=== PATIENT | female | born 1985 | race Caucasian/White ===

== ENCOUNTER 2023-08-14 14:27 | Outpatient (REF) | payer BC, SELFPAY ==
[2023-08-14 16:17] LABS: SARS-CoV-2 Ag POSITIVE (NEGATIVE)
== END 2023-08-14 14:28 | disposition home or self-care (01) ==
LOC: LAB 14:27
PROVIDERS: PCP Family Medicine; Visit Provider Family Medicine
DX: R09.81 Nasal congestion (principal); R05.1 Acute cough; R53.83 Other fatigue
CPT/HCPCS: 87811

== ENCOUNTER 2023-09-18 15:33 | Outpatient (REF) | payer BC, SELFPAY ==
[2023-09-18 17:57] LABS: Influenza Virus A Antigen Negative; Influenza Virus B Antigen Negative; Internal Control Within Normal Limits
== END 2023-09-18 15:34 | disposition home or self-care (01) ==
LOC: LAB 15:33
PROVIDERS: PCP Family Medicine; Visit Provider Family Medicine
DX: E03.9 Hypothyroidism, unspecified (principal)
CPT/HCPCS: 87804

== ENCOUNTER 2023-11-09 19:43 | Outpatient (REF) | payer BC, SELFPAY ==
--- OUTSIDE RECORDS SUMMARY | 2023-11-09 19:54 | XMS_ITS | CCD ---
Author Organization [facility] Care Team Providers Care Business Administrator Name Role Phone MINA, DR GALEANO Admitting Unavailable HOY, DR GALEANO Attending Unavailable HOY, DR GALEANO Primary Care Unavailable HOY, DR GALEANO Consulting Unavailable HOY, DR GALEANO Admitting Unavailable HOY, DR GALEANO Attending Unavailable HOY, DR GALEANO Primary Care Unavailable HOY, DR GALEANO Consulting Unavailable HOY, DR GALEANO Admitting Unavailable HOY, DR GALEANO Attending Unavailable HOY, DR GALEANO Primary Care Unavailable DARIANAY, DR GALEANO Consulting Unavailable Problems Active Problems Problem Classification Problem Date Documented Da te Episodic/Chronic Unclassified (3 sources) CONTACT W/AND (SUSP) EXPOS COVID-19; Translations: [CONTACT W/AND (SUSP) EXPOS COVID-19] Onset: 08-03-2021 Viral infection (1 source) COVID-19; Translations: [COVID-19] Onset: 09-15-2021 Past or Other Problems Problem Classification Problem Date Documented Da te Episodic/Chronic Unclassified (1 source) CONTACT W/AND (SUSP) EXPOS COVID-19; Translations: [CONTACT W/AND (SUSP) EXPOS COVID-19] Onset: 09-13-2021 Results Test Name Value Interpretation Reference Range Facility CBC AUTO DIFFon 06-28-2022 BASO # 0.0 103/ul Normal 0.0-0.1 [facility] Comment on above: Performed By: #### C BC #### [facility] [address] [address] [address] Eric Caldwell Basophils/100 WBC (Bld) 0.3 % Normal 0.2-2.0 [facility] Comment on above: Performed By: #### C BC #### [facility] [address] [address] [address] Eric Caldwell EO # 0.1 103/ul Normal 0.0-0.7 [facility] Comment on above: Performed By: #### C BC #### [facility] [address] [place] [address] Dr. Eric Caldwell Eosinophils/100 WBC (Bld) 0.9 % Normal 0.9-7.0 [facility] Comment on above: Performed By: #### C BC #### [facility] [address] [place] [address] Dr. Eric Caldwell Erythrocyte distribution width (RBC) [Ratio] 12.4 % Normal 11.0-15.0 [facility] Comment on above: Performed By: #### C BC #### [facility] [address] [place] [address] Dr. Eric Caldwell Hematocrit (Bld) [Volume fraction] 40.6 % Normal 36.0-48.0 [facility] Comment on above: Performed By: #### C BC #### [facility] [address] [place] [address] Dr. Eric Caldwell Hemoglobin (Bld) [Mass/Vol] 13.6 g/dL Normal 12.0-16.0 [facility] Comment on above: Performed By: #### C BC #### [facility] [address] [place] [address] Dr. Eric Caldwell IG # 0.01 10e3/ul Normal 0.00-0.03 [facility] Comment on above: Performed By: #### C BC #### [facility] [address] [place] [address] Dr. Eric Caldwell IG % 0.1 % Normal 0.0-0.5 [facility] Comment on above: Performed By: #### C BC #### [facility] [address] [place] [address] Dr. Eric Caldwell LYMPH # 2.0 103/ul Normal 1.2-3.8 [facility] Comment on above: Performed By: #### C BC #### [facility] [address] [place] [address] Dr. Eric Caldwell Lymphocytes/100 WBC (Bld) 26.2 % Normal 20.5-60.0 [facility] Comment on above: Performed By: #### C BC #### [facility] [address] [place] [address] Dr. Eric Caldwell MANUAL DIFF REQ NO Normal [facility] Comment on above: Performed By: #### C BC #### [facility] [address] [place] [address] Dr. Eric Caldwell MCH (RBC) [Entitic mass] 30.0 pg Normal 26.7-34.0 [facility] Comment on above: Performed By: #### C BC #### [facility] [address] [place] [address] Dr. Eric Caldwell MCHC (RBC) [Mass/Vol] 33.5 g/dL Normal 29.9-35.2 [facility] Comment on above: Performed By: #### C BC #### [facility] [address] [place] [address] Dr. Eric Caldwell MCV (RBC) [Entitic vol] 89.6 fL Normal 81.0-99.0 [facility] Comment on above: Performed By: #### C BC #### [facility] [address] [place] [address] Dr. Eric Caldwell MONO # 0.4 103/ul Normal 0.3-0.8 [facility] Comment on above: Performed By: #### C BC #### [facility] [address] [place] [address] Dr. Eric Caldwell Monocytes/100 WBC (Bld) 5.8 % Normal 1.7-12.0 [facility] Comment on above: Performed By: #### C BC #### [facility] [address] [place] [address] Dr. Eric Caldwell NEUT # 5.0 103/ul Normal 1.4-6.5 [facility] Comment on above: Performed By: #### C BC #### [facility] [address] [place] [address] Dr. Eric Caldwell Neutrophils/100 WBC (Bld) 66.7 % Normal 43.0-75.0 [facility] Comment on above: Performed By: #### C BC #### [facility] [address] [address] [address] Eric Caldwell Platelet mean volume (Bld) [Entitic vol] 10.6 fL Normal 9.5-13.5 [facility] Comment on above: Performed By: #### C BC #### [facility] [address] [address] [address] Eric Caldwell PLT 198 103/ul Normal 150-450 [facility] Comment on above: Performed By: #### C BC #### [facility] [address] [address] [address] Eric Caldwell RBC 4.53 106/ul Normal 4.20-5.40 [facility] Comment on above: Performed By: #### C BC #### [facility] [address] [place] [address] Dr. Eric Caldwell WBC 7.5 103/ul Normal 4.0-11.0 [facility] Comment on above: Performed By: #### C BC #### [facility] [address] [place] [address] Dr. Eric Caldwell FREE THYROXINE INDEX T7on FTI 1.95 Normal 1.30-4.50 [facility] Comment on above: Performed By: #### T SH, T7, LIPID, CMP #### [facility] [address] [place] [address] Dr. Eric Caldwell T3U 33.0 % Normal 30.0-39.0 [facility] Comment on above: Performed By: #### T SH, T7, LIPID, CMP #### [facility] [address] [place] [address] Dr. Eric Caldwell T4 [Mass/Vol] 5.90 ug/dL Normal 4.80-13.90 [facility] Comment on above: Performed By: #### T SH, T7, LIPID, CMP #### [facility] [address] [place] [address] Dr. Eric Caldwell GLYCOHEMOGLOBIN A1Con 2021 ADA RECOMMENDATION SEE BELOW Normal [facility] Comment on above: Result Comment: ADA RECOMMENDED LIMIT 4.0 - 6.0 ADA THERAPEUTIC TARGET < 7.0 ACTION SUGGESTED > 7.0 Performed By: #### A 1C #### [facility] [address] [address] [address] Eric Caldwell Glucose [Mass/Vol] 88 mg/dL Normal [facility] Comment on above: Performed By: #### A 1C #### [facility] [address] [address] [address] Eric Caldwell HbA1c (Bld) [Mass fraction] 4.7 % Normal 4.5-6.2 [facility] Comment on above: Performed By: #### A 1C #### [facility] [address] [place] [address] Dr. Eric Caldwell LIPID PROFILEon 06-28-2022 CHOL-HDL RATIO NORM SEE BELOW Normal [facility] Comment on above: Result Comment: 3.3 - 4.4 LOW RISK 4.4 - 7.1 AVERAGE RISK 7.1 - 11.0 MODERATE RISK >11.0 HIGH RISK Performed By: #### T SH, T7, LIPID, CMP #### [facility] [address] [place] [address] Dr. Eric Caldwell Cholesterol [Mass/Vol] 166 mg/dL Normal <=200 [facility] Comment on above: Performed By: #### T SH, T7, LIPID, CMP #### [facility] [address] [place] [address] Dr. Eric Caldwell Cholesterol in HDL [Mass/Vol] 51 mg/dL Normal 40-60 [facility] Comment on above: Performed By: #### T SH, T7, LIPID, CMP #### [facility] [address] [address] [address] Eric Caldwell Cholesterol in LDL [Mass/Vol] 99.6 mg/dL Normal [facility] Comment on above: Performed By: #### T SH, T7, LIPID, CMP #### [facility] [address] [place] [address] Dr. Eric Caldwell Cholesterol.total/Ch olesterol in HDL [Mass ratio] 3.3 {ratio} Normal [facility] Comment on above: Performed By: #### T SH, T7, LIPID, CMP #### [facility] [address] [address] [address] Eric Caldwell HDL NORMAL > or = 60 mg/dl - LOW CARDIOVASCULAR RISK <40 mg/dl - HIGH CARDIOVASCULAR RISK Normal [facility] Comment on above: Performed By: #### T SH, T7, LIPID, CMP #### [facility] [address] [address] [address] Eric Caldwell LDL CALC NORMAL SEE BELOW Normal [facility] Comment on above: Result Comment: <100 mg/dl OPTIMAL 100 - 129 mg/dl NEAR OR ABOVE OPTIMAL 130 - 159 mg/dl BORDERLINE HIGH 160 - 189 mg/dl HIGH >190 mg/dl VERY HIGH Performed By: #### T SH, T7, LIPID, CMP #### [facility] [address] [address] [address] Eric Caldwell Triglyceride [Mass/Vol] 77 mg/dL Normal <=150 [facility] Comment on above: Performed By: #### T SH, T7, LIPID, CMP #### [facility] [address] [address] [address] Eric Caldwell VLDL CALC 15.4 mg/dL Normal [facility] Comment on above: Performed By: #### T SH, T7, LIPID, CMP #### [facility] [address] [address] [address] Eric Caldwell PROF 14(COMP METB)on 022 Albumin [Mass/Vol] 3.4 g/dL Normal 3.4-5.0 [facility] Comment on above: Performed By: #### T SH, T7, LIPID, CMP #### [facility] [address] [address] [address] Eric Caldwell Albumin/Globulin [Mass ratio] 0.9 {ratio} Normal [facility] Comment on above: Performed By: #### T SH, T7, LIPID, CMP #### [facility] [address] [address] [address] Eric Caldwell ALP [Catalytic activity/Vol] 52 U/L Normal 46-116 [facility] Comment on above: Performed By: #### T SH, T7, LIPID, CMP #### [facility] [address] [address] [address] Eric Caldwell ALT [Catalytic activity/Vol] 26 U/L Normal 14-59 [facility] Comment on above: Performed By: #### T SH, T7, LIPID, CMP #### [facility] [address] [place] [address] Dr. Eric Caldwell Anion gap [Moles/Vol] 11.1 mmol/L Normal [facility] Comment on above: Performed By: #### T SH, T7, LIPID, CMP #### [facility] [address] [place] [address] Dr. Eric Caldwell AST [Catalytic activity/Vol] 15 U/L Normal 15-37 [facility] Comment on above: Performed By: #### T SH, T7, LIPID, CMP #### [facility] [address] [place] [address] Dr. Eric Caldwell Bilirubin [Mass/Vol] 0.5 mg/dL Normal 0.2-1.0 [facility] Comment on above: Performed By: #### T SH, T7, LIPID, CMP #### [facility] [address] [place] [address] Dr. Eric Caldwell Calcium [Mass/Vol] 8.7 mg/dL Normal 8.5-10.1 [facility] Comment on above: Performed By: #### T SH, T7, LIPID, CMP #### [facility] [address] [address] [address] Eric Caldwell Chloride [Moles/Vol] 105 mmol/L Normal 98-107 [facility] Comment on above: Performed By: #### T SH, T7, LIPID, CMP #### [facility] [address] [place] [address] Dr. Eric Caldwell CO2 [Moles/Vol] 23.9 mmol/L Normal 21.0-32.0 [facility] Comment on above: Performed By: #### T SH, T7, LIPID, CMP #### [facility] [address] [place] [address] Dr. Eric Caldwell Creatinine [Mass/Vol] 0.62 mg/dL Normal 0.55-1.02 [facility] Comment on above: Performed By: #### T SH, T7, LIPID, CMP #### [facility] [address] [place] [address] Dr. Eric Caldwell EGFR-AF CITIZ[place] >60 Normal >=60 [facility] Comment on above: Performed By: #### T SH, T7, LIPID, CMP #### [facility] [address] [address] [address] Eric Caldwell EGFR-NON AF CITIZEN OF [place] >60 Normal >=60 [facility] Comment on above: Performed By: #### T SH, T7, LIPID, CMP #### [facility] [address] [place] [address] Dr. Eric Caldwell Globulin (S) [Mass/Vol] 3.6 g/dL Normal [facility] Comment on above: Performed By: #### T SH, T7, LIPID, CMP #### [facility] [address] [place] [address] Dr. Eric Caldwell Glucose [Mass/Vol] 97 mg/dL Normal 74-106 [facility] Comment on above: Performed By: #### T SH, T7, LIPID, CMP #### [facility] [address] [place] [address] Dr. Eric Caldwell Potassium [Moles/Vol] 4.0 mmol/L Normal 3.5-5.1 [facility] Comment on above: Performed By: #### T SH, T7, LIPID, CMP #### [facility] [address] [place] [address] Dr. Eric Caldwell Protein [Mass/Vol] 7.0 g/dL Normal 6.4-8.2 [facility] Comment on above: Performed By: #### T SH, T7, LIPID, CMP #### [facility] [address] [place] [address] Dr. Eric Caldwell Sodium [Moles/Vol] 136 mmol/L Normal 136-145 [facility] Comment on above: Performed By: #### T SH, T7, LIPID, CMP #### [facility] [address] [address] [address] Eric Caldwell Urea nitrogen [Mass/Vol] 11.0 mg/dL Normal 7.0-18.0 [facility] Comment on above: Performed By: #### T SH, T7, LIPID, CMP #### [facility] [address] [address] [address] Eric Caldwell Urea nitrogen/Creatinine [Mass ratio] 17.7 mg/mg Normal [facility] Comment on above: Performed By: #### T SH, T7, LIPID, CMP #### [facility] [address] [address] [address] Eric Caldwell TSHon 06-28-2022 TSH 3.734 uIU/mL Normal 0.358-3.740 [facility] Comment on above: Performed By: #### T SH, T7, LIPID, CMP #### [facility] [address] [address] [address] Eric Caldwell Covid-19 PCR (CVDTBH)on SARS-CoV-2 (COVID-19) RNA SERA+probe Ql (Unsp spec) Detected Critically abnormal NOT DETECTED [facility] Comment on above: Result Comment: This test is not yet approved or cleared by the [place] FDA. When there are no FDA-approved or cleared tests available, and other criteria are met, FDA can make tests available under an emergency access mechanism called an Emergency Use Authorization (EUA). The EUA for this test is supported by the [place] of Health and Human Service's (HHS's) declaration that circumstances exist to justify the emergency use of in vitro diagnostics for the detection and/or diagnosis of the virus that causes COVID-19. This EUA will remain in effect (meaning this test can be used) for the duration of the COVID-19 declaration justifying emergency of IVDs, unless it is terminated or revoked by FDA (after which the test may no longer be used). Performed By: #### C VDTBH #### [facility] [address] [address] [address] Eric Caldwell Covid-19 PCR (CVDTBH)on 07-08 SARS-CoV-2 (COVID-19) RNA SERA+probe Ql (Unsp spec) Not detected Normal NOT DETECTED [facility] Comment on above: Result Comment: This test is not yet approved or cleared by the [place] FDA. When there are no FDA-approved or cleared tests available, and other criteria are met, FDA can make tests available under an emergency access mechanism called an Emergency Use Authorization (EUA). The EUA for this test is supported by the [place] of Health and Human Service's (HHS's) declaration that circumstances exist to justify the emergency use of in vitro diagnostics for the detection and/or diagnosis of the virus that causes COVID-19. This EUA will remain in effect (meaning this test can be used) for the duration of the COVID-19 declaration justifying emergency of IVDs, unless it is terminated or revoked by FDA (after which the test may no longer be used). When diagnostic testing is negative, the possibility of a false negative should be considered in the context of a patient's recent exposures and the presence of clinical signs and symptoms consistent with SARS-CoV-2. Performed By: #### C [facility] #### [facility] [address] [place] [address] Dr. Eric Caldwell Encounters Encounter Date Encounter Type Care Provider Facility Start: 07-02-2022 Encounter for genera l adult medical examination without abnormal findings DR WALESKA ENRIQUEZ [facility] Start: 06-28-2022 End: 06-29-[address] WALESKA ENRIQUEZ Facility:[facility] Start: 06-28-2022 End: 06-29-2022 Encounter for general adult medical examination without abnormal findings DR WALESKA ENRIQUEZ Facility:[facility] Start: 09-13-2021 End: 09-13-[address] WALESKA ENRIQUEZ Facility:[facility] Start: 07-27-2021 End: 07-27-[address] WALESKA ENRIQUEZ Facility:[facility] Payers Date Payer Category Payer Unknown [id number] [id number] [id number] 1986 Unknown [id number] [id number] 1986 Unknown [id number] [id number] [id number] 1958 Private Health Insurance [id number] 1958 Unknown [id number] Summary Purpose Family History No Family History Records Found Advance Directives No Advanced Directives Records Found Additional Source Comments INFORMATION SOURCE (unrecogn ized section and content) DATE CREATED AUTHOR 07/02/2022 [facility] FOR RECORDS PERTAINING TO PATIENTS WHO ARE OR HAVE BEEN ENROLLED IN A CHEMICAL DEPENDENCY/SUBSTANCEABUSE PROGRAM, SOME INFORMATION MAY BE OMITTED. This clinical summary was aggregated from multiple sources. Caution should be exercised in using it in the provision of clinical care. This summary normalizes information from multiple sources, and as a consequence, information in this document may materially change the coding, format and clinical context of patient data. In addition, data may be omitted in some cases. CLINICAL DECISIONS SHOULD BE BASED ON THE PRIMARY CLINICAL RECORDS. [facility] [employer] [facility]. provides no warranty or guarantee of the accuracy or completeness of information in this document.
[2023-11-16 13:08] LABS: Age Gdln ACOG Testing Note (.); HPV Aptima Negative (Negative); IGP, Aptima HPV, rfx 16/18,45 Note (.)
== END 2023-11-09 19:44 | disposition home or self-care (01) ==
LOC: LAB 19:43
PROVIDERS: PCP Family Medicine; Visit Provider Physician Assistant
DX: Z01.419 Encounter for gynecological examination (general) (routine) without abnormal findings (principal)
CPT/HCPCS: 87624; G0145

== ENCOUNTER 2024-06-20 17:03 | Emergency (ER) | payer OTHER, BC, SELFPAY ==
[2024-06-20 17:20] VITALS: BP 153/96; PULSE 96; TEMP 36.9; O2SAT 98; BMI 45.2
--- OUTSIDE RECORDS SUMMARY | 2024-06-20 17:26 | XMS_ITS | CCD ---
Author Organization [facility] Care Team Providers Care [employer] Consultant Name Role Phone MINA, DR GALEANO Admitting Unavailable HOY, DR GALEANO Attending Unavailable HOY, DR GALEANO Primary Care Unavailable HOY, DR GALEANO Consulting Unavailable HOY, DR GALEANO Admitting Unavailable HOY, DR GALEANO Attending Unavailable DARIANAY, DR GALEANO Primary Care Unavailable HOY, DR GALEANO Consulting Unavailable HOY, DR GALEANO Admitting Unavailable HOY, DR GALEANO Attending Unavailable HOY, DR GALEANO Primary Care Unavailable HOY, DR GALEANO Consulting Unavailable [facility], Noel Miranda Attending Unavailable [facility], Noel Miranda Admitting Unavailable [facility], DO Noel Miranda Attending Provider Problems Active Problems Problem Classification Problem Date [...] Test Name Value Interpretation Reference Range Facility Basic Metabolic PanelOrdered By: Noel Thakkar on 05-08-2024 Anion gap [Moles/Vol] 12.2 mmol/L Normal 6.0-15.0 [facility] Comment on above: Performed By: #### L IPID, BMP #### [address] Calcium [Mass/Vol] 9.5 mg/dL Normal 8.6-10.3 [facility] Comment on above: Performed By: #### L IPID, BMP #### [facility] [address] Chloride [Moles/Vol] 103 mmol/L Normal 98-107 [facility] Comment on above: Performed By: #### L IPID, BMP #### [facility] [address] CO2 [Moles/Vol] 26.9 mmol/L Normal 21.0-31.0 [facility] Comment on above: Performed By: #### L IPID, BMP #### [address] Creatinine [Mass/Vol] 0.79 mg/dL Normal 0.60-1.20 [facility] Comment on above: Performed By: #### L IPID, BMP #### [address] Glucose [Mass/Vol] 76 mg/dL Normal 70-100 [facility] Comment on above: Result Comment: [place] om Glucose Reference Range is dependent on time and content of last meal. Glucose of more than 200 mg/dL in a nonstressed, ambulatory subject supports the diagnosis of Diabetes Mellitus. ADA recommended reference range Performed By: #### L IPID, BMP #### [address] ADA recommended refe rence rangeRandom Glucose Reference Range is dependent on time and content of last meal. Glucose of more than 200 mg/dL in a nonstressed, ambulatory subject supports the diagnosis of Diabetes Mellitus. Potassium [Moles/Vol] 4.1 mmol/L Normal 3.5-5.1 [facility] Comment on above: Performed By: #### L IPID, BMP #### [address] Sodium [Moles/Vol] 138 mmol/L Normal 136-145 [facility] Comment on above: Performed By: #### L IPID, BMP #### [address] [place] [address] [place] Urea nitrogen [Mass/Vol] 19 mg/dL Normal 7-25 [facility] Comment on above: Performed By: #### L IPID, BMP #### [facility] [address] [place] [id number] [facility] Basic Metabolic Panelon 100 GFR/1.73 sq M.predicted MDRD (S/P/Bld) [Vol rate/Area] mL/min/{1.73_m2} Normal [facility] Comment on above: Performed By: #### L IPID, BMP #### [facility] [address] Cholesterol in LDL Calc [Mas s/Vol]Ordered By: Noel Thakkar on 05-08-2024 Cholesterol in LDL [Mass/Vol] 113 mg/dL High 0-100 [facility] Comment on above: LDL ATP III CLASSIFI CATIONLDL less than 100 mg/dL OptimalLDL 100-129 mg/dL Near or above optimalLDL 130-159 mg/dL Borderline highLDL 160-189 mg/dL HighLDL greater than 189 mg/dL Very high Cholesterol in VLDL Calc [Ma ss/Vol]Ordered By: Noel Thakkar on 05-08-2024 Cholesterol in VLDL [Mass/Vol] 47 mg/dL [facility] Lipid PanelOrdered By: Noel Thakkar on 05-08-2024 Cholesterol [Mass/Vol] 207 mg/dL High 140-200 [facility] Comment on above: Result Comment: Chol less than 200 mg/dl low risk Chol 201-239 mg/dl borderline risk Chol 240 mg/dl and greater high risk Performed By: #### L IPID, BMP #### [facility] [address] [place] [id number] [facility] Chol less than 200 m g/dl low riskChol 201-239 mg/dl borderline riskChol 240 mg/dl and greater high risk Cholesterol in HDL [Mass/Vol] 47 mg/dL Normal 23-92 [facility] Comment on above: Result Comment: HDL CHOL ATP-III CLASSIFICATION Cardiovascular Risk HDL > or equal to 60 mg/dL LOW HDL < 40 mg/dL HIGH Performed By: #### L IPID, BMP #### [facility] [address] [place] [address] HDL CHOL ATP-III CLA SSIFICATION Cardiovascular RiskHDL > or equal to 60 mg/dL LOWHDL < 40 mg/dL HIGH Cholesterol.total/Chol esterol in HDL [Mass ratio] 4.4 {ratio} Normal <5.0 [facility] Comment on above: Result Comment: PERF ORMED BY: [place] [address] PATHOLOGIST [employer]EL[employer] AP[employer] ARC ROCIO PERRY M.D. Performed By: #### L IPID, BMP #### [address] Lipid Panelon 05-08-2024 LDL Cholesterol,Calculated 113 mg/dL High 0-100 [facility] Comment on above: Result Comment: LDL ATP III CLASSIFICATION LDL less than 100 mg/dL Optimal LDL 100-129 mg/dL Near or above optimal LDL 130-159 mg/dL Borderline high LDL 160-189 mg/dL High LDL greater than 189 mg/dL Very high Performed By: #### L IPID, BMP #### [facility] [address] [place] [address] Triglyceride w/Reflex 237 mg/dL High 0-149 [facility] Comment on above: Result Comment: TRIG ATP III CLASSIFICATION TRIG less than 150 mg/dL Normal TRIG 150-199 mg/dL Borderline high TRIG 200-500 mg/dL High TRIG greater than 500 mg/dL Very high Standard traceable to the Center for Disease Conrtrol and Prevention (CDC) test method. Performed By: #### L IPID, BMP #### [facility] [address] [place] [address] VLDL CHOLESTEROL 47 mg/dL Normal [facility] Comment on above: Performed By: #### L IPID, BMP #### [address] No Panel InformationOrdered By: Noel Thakkar on 05-08-2024 Estimated GFR (CKD-EPI) > 60.0 mL/Min [facility] Creatinine Clearance (Chem N/A [facility] Triglyceride [Mass/volume] i n Serum or PlasmaOrdered By: Noel Thakkar on 05-08-2024 Triglyceride [Mass/Vol] 237 mg/dL High 0-149 [facility] Comment on above: TRIG ATP III CLASSIF ICATIONTRIG less than 150 mg/dL NormalTRIG 150-199 mg/dL Borderline highTRIG 200-500 mg/dL High TRIG greater than 500 mg/dL Very highStandard traceable to the Center for Disease Conrtrol and Prevention (CDC) test method. CBC AUTO DIFFon 06-28-2022 BASO # 0.0 103/ul Normal 0.0-0.1 [facility] Comment on above: Performed By: #### C BC #### [facility] [address] [address] [address] Eric Caldwell Basophils/100 WBC (Bld) 0.3 % Normal 0.2-2.0 [facility] Comment on above: Performed By: #### C BC #### [facility] [address] [address] [address] Eric Caldwell EO # 0.1 103/ul Normal 0.0-0.7 [facility] Comment on above: Performed By: #### C BC #### [facility] [address] [address] [address] Eric Caldwell Eosinophils/100 WBC (Bld) 0.9 % Normal 0.9-7.0 [facility] Comment on above: Performed By: #### C BC #### [facility] [address] [address] [address] Eric Caldwell Erythrocyte distribution width (RBC) [Ratio] 12.4 % Normal 11.0-15.0 [facility] Comment on above: Performed By: #### C BC #### [facility] [address] [address] [address] Eric Caldwell Hematocrit (Bld) [Volume fraction] 40.6 % Normal 36.0-48.0 [facility] Comment on above: Performed By: #### C BC #### [facility] [address] [address] [address] Eric Caldwell Hemoglobin (Bld) [Mass/Vol] 13.6 g/dL Normal 12.0-16.0 [facility] Comment on above: Performed By: #### C BC #### [facility] [address] [place] [address] Dr. Eric Caldwell IG # 0.01 10e3/ul Normal 0.00-0.03 [facility] Comment on above: Performed By: #### C BC #### [facility] [address] [place] [address] Dr. Eric Caldwell IG % 0.1 % Normal 0.0-0.5 [facility] Comment on above: Performed By: #### C BC #### [facility] [address] [place] [address] Dr. Eric Caldwell LYMPH # 2.0 103/ul Normal 1.2-3.8 [facility] Comment on above: Performed By: #### C BC #### [facility] [address] [place] [address] Dr. Eric Caldwell Lymphocytes/100 WBC (Bld) 26.2 % Normal 20.5-60.0 [facility] Comment on above: Performed By: #### C BC #### [facility] [address] [place] [address] Dr. Eric Caldwell MANUAL DIFF REQ NO Normal [facility] Comment on above: Performed By: #### C BC #### [facility] [address] [place] [address] Dr. Eric Caldwell MCH (RBC) [Entitic mass] 30.0 pg Normal 26.7-34.0 [facility] Comment on above: Performed By: #### C BC #### [facility] [address] [place] [address] Dr. Eric Caldwell MCHC (RBC) [Mass/Vol] 33.5 g/dL Normal 29.9-35.2 [facility] Comment on above: Performed By: #### C BC #### [facility] [address] [place] [address] Dr. Eric Caldwell MCV (RBC) [Entitic vol] 89.6 fL Normal 81.0-99.0 [facility] Comment on above: Performed By: #### C BC #### [facility] [address] [place] [address] Dr. Eric Caldwell MONO # 0.4 103/ul Normal 0.3-0.8 [facility] Comment on above: Performed By: #### C BC #### [facility] [address] [place] [address] Dr. Eric Caldwell Monocytes/100 WBC (Bld) 5.8 % Normal 1.7-12.0 [facility] Comment on above: Performed By: #### C BC #### [facility] [address] [place] [address] Dr. Eric Caldwell NEUT # 5.0 103/ul Normal 1.4-6.5 [facility] Comment on above: Performed By: #### C BC #### [facility] [address] [place] [address] Dr. Eric Caldwell Neutrophils/100 WBC (Bld) 66.7 % Normal 43.0-75.0 [facility] Comment on above: Performed By: #### C BC #### [facility] [address] [place] [address] Dr. Eric Caldwell Platelet mean volume (Bld) [Entitic vol] 10.6 fL Normal 9.5-13.5 [facility] Comment on above: Performed By: #### C BC #### [facility] [address] [place] [address] Dr. Eric Caldwell PLT 198 103/ul Normal 150-450 [facility] Comment on above: Performed By: #### C BC #### [facility] [address] [place] [address] Dr. Eric Caldwell RBC 4.53 106/ul Normal 4.20-5.40 [facility] Comment on above: Performed By: #### C BC #### [facility] [address] [place] [address] Dr. Eric Caldwell WBC 7.5 103/ul Normal 4.0-11.0 [facility] Comment on above: Performed By: #### C BC #### [facility] [address] [address] [address] Eric Caldwell FREE THYROXINE INDEX T7on FTI 1.95 Normal 1.30-4.50 [facility] Comment on above: Performed By: #### T SH, T7, LIPID, CMP #### [facility] [address] [place] [address] Dr. Eric Caldwell T3U 33.0 % Normal 30.0-39.0 [facility] Comment on above: Performed By: #### T SH, T7, LIPID, CMP #### [facility] [address] [place] [address] Dr. Eric Caldwell T4 [Mass/Vol] 5.90 ug/dL Normal 4.80-13.90 [facility] Comment on above: Performed By: #### T SH, T7, LIPID, CMP #### [facility] [address] [place] [address] Dr. Eric Caldwell GLYCOHEMOGLOBIN A1Con 2021 ADA RECOMMENDATION SEE BELOW Normal [facility] Comment on above: Result Comment: ADA RECOMMENDED LIMIT 4.0 - 6.0 ADA THERAPEUTIC TARGET < 7.0 ACTION SUGGESTED > 7.0 Performed By: #### A 1C #### [facility] [address] [place] [address] Dr. Eric Caldwell Glucose [Mass/Vol] 88 mg/dL Normal [facility] Comment on above: Performed By: #### A 1C #### [facility] [address] [place] [address] Dr. Eric Caldwell HbA1c (Bld) [Mass fraction] 4.7 % Normal 4.5-6.2 [facility] Comment on above: Performed By: #### A 1C #### [facility] [address] [place] [address] Dr. Eric Caldwell LIPID PROFILEon 06-28-2022 CHOL-HDL RATIO NORM SEE BELOW Normal [facility] Comment on above: Result Comment: 3.3 - 4.4 LOW RISK 4.4 - 7.1 AVERAGE RISK 7.1 - 11.0 MODERATE RISK >11.0 HIGH RISK Performed By: #### T SH, T7, LIPID, CMP #### [facility] [address] [address] [address] Eric Caldwell Cholesterol [Mass/Vol] 166 mg/dL Normal <=200 [facility] Comment on above: Performed By: #### T SH, T7, LIPID, CMP #### [facility] [address] [address] [address] Eric Caldwell Cholesterol in HDL [Mass/Vol] 51 mg/dL Normal 40-60 [facility] Comment on above: Performed By: #### T SH, T7, LIPID, CMP #### [facility] [address] [address] [address] Eric Caldwell Cholesterol in LDL [Mass/Vol] 99.6 mg/dL Normal [facility] Comment on above: Performed By: #### T SH, T7, LIPID, CMP #### [facility] [address] [place] [address] Dr. Eric Caldwell Cholesterol.total/Chol esterol in HDL [Mass ratio] 3.3 {ratio} Normal [facility] Comment on above: Performed By: #### T SH, T7, LIPID, CMP #### [facility] [address] [address] [address] Eric Caldwell HDL NORMAL > or = 60 mg/dl - LO W CARDIOVASCULAR RISK <40 mg/dl - HIGH CARDIOVASCULAR RISK Normal [facility] Comment on above: Performed By: #### T SH, T7, LIPID, CMP #### [facility] [address] [address] [address] Eric Caldwell LDL CALC NORMAL SEE BELOW Normal [facility] Comment on above: Result Comment: <100 mg/dl OPTIMAL 100 - 129 mg/dl NEAR OR ABOVE OPTIMAL 130 - 159 mg/dl BORDERLINE HIGH 160 - 189 mg/dl HIGH >190 mg/dl VERY HIGH Performed By: #### T SH, T7, LIPID, CMP #### [facility] [address] [address] [address] Eric Caldwell Triglyceride [Mass/Vol] 77 mg/dL Normal <=150 [facility] Comment on above: Performed By: #### T SH, T7, LIPID, CMP #### [facility] [address] [address] [address] Eric Caldwell VLDL CALC 15.4 mg/dL Normal [facility] Comment on above: Performed By: #### T SH, T7, LIPID, CMP #### [facility] [address] [address] [address] Eric Caldwell PROF 14(COMP METB)on 022 Albumin [Mass/Vol] 3.4 g/dL Normal 3.4-5.0 [facility] Comment on above: Performed By: #### T SH, T7, LIPID, CMP #### [facility] [address] [address] [address] Eric Caldwell Albumin/Globulin [Mass ratio] 0.9 {ratio} Normal [facility] Comment on above: Performed By: #### T SH, T7, LIPID, CMP #### [facility] [address] [address] [address] Eric Caldwell ALP [Catalytic activity/Vol] 52 U/L Normal 46-116 [facility] Comment on above: Performed By: #### T SH, T7, LIPID, CMP #### [facility] [address] [address] [address] Eric Caldwell ALT [Catalytic activity/Vol] 26 U/L Normal 14-59 [facility] Comment on above: Performed By: #### T SH, T7, LIPID, CMP #### [facility] [address] [address] [address] Eric Caldwell Anion gap [Moles/Vol] 11.1 mmol/L Normal [facility] Comment on above: Performed By: #### T SH, T7, LIPID, CMP #### [facility] [address] [address] [address] Eric Caldwell AST [Catalytic activity/Vol] 15 U/L Normal 15-37 [facility] Comment on above: Performed By: #### T SH, T7, LIPID, CMP #### [facility] [address] [address] [address] Eric Caldwell Bilirubin [Mass/Vol] 0.5 mg/dL Normal 0.2-1.0 [facility] Comment on above: Performed By: #### T SH, T7, LIPID, CMP #### [facility] [address] [place] [address] Dr. Eric Caldwell Calcium [Mass/Vol] 8.7 mg/dL Normal 8.5-10.1 [facility] Comment on above: Performed By: #### T SH, T7, LIPID, CMP #### [facility] [address] [place] [address] Dr. Eric Caldwell Chloride [Moles/Vol] 105 mmol/L Normal 98-107 [facility] Comment on above: Performed By: #### T SH, T7, LIPID, CMP #### [facility] [address] [place] [address] Dr. Eric Caldwell CO2 [Moles/Vol] 23.9 mmol/L Normal 21.0-32.0 [facility] Comment on above: Performed By: #### T SH, T7, LIPID, CMP #### [facility] [address] [place] [address] Dr. Eric Caldwell Creatinine [Mass/Vol] 0.62 mg/dL Normal 0.55-1.02 [facility] Comment on above: Performed By: #### T SH, T7, LIPID, CMP #### [facility] [address] [place] [address] Dr. Eric Caldwell EGFR-AF SIERRA LEONEAN >60 Normal >=60 [facility] Comment on above: Performed By: #### T SH, T7, LIPID, CMP #### [facility] [address] [place] [address] Dr. Eric Caldwell EGFR-NON AF SIERRA LEONEAN >60 Normal >=60 [facility] Comment on above: Performed By: #### T SH, T7, LIPID, CMP #### [facility] [address] [place] [address] Dr. Eric Caldwell Globulin (S) [Mass/Vol] 3.6 g/dL Normal [facility] Comment on above: Performed By: #### T SH, T7, LIPID, CMP #### [facility] [address] [place] [address] Dr. Eric Caldwell Glucose [Mass/Vol] 97 mg/dL Normal 74-106 [facility] Comment on above: Performed By: #### T SH, T7, LIPID, CMP #### [facility] [address] [address] [address] Eric Caldwell Potassium [Moles/Vol] 4.0 mmol/L Normal 3.5-5.1 [facility] Comment on above: Performed By: #### T SH, T7, LIPID, CMP #### [facility] [address] [address] [address] Eric Caldwell Protein [Mass/Vol] 7.0 g/dL Normal 6.4-8.2 [facility] Comment on above: Performed By: #### T SH, T7, LIPID, CMP #### [facility] [address] [address] [address] Eric Caldwell Sodium [Moles/Vol] 136 mmol/L Normal 136-145 [facility] Comment on above: Performed By: #### T SH, T7, LIPID, CMP #### [facility] [address] [address] [address] Eric Caldwell Urea nitrogen [Mass/Vol] 11.0 mg/dL Normal 7.0-18.0 [facility] Comment on above: Performed By: #### T SH, T7, LIPID, CMP #### [facility] [address] [address] [address] Eric Caldwell Urea nitrogen/Creatinine [Mass ratio] 17.7 mg/mg Normal [facility] Comment on above: Performed By: #### T SH, T7, LIPID, CMP #### [facility] [address] [address] [address] Eric Caldwell TSHon 06-28-2022 TSH 3.734 uIU/mL Normal 0.358-3.740 [facility] Comment on above: Performed By: #### T SH, T7, LIPID, CMP #### [facility] [address] [address] [address] Eric Caldwell Covid-19 PCR (CVDTBH)on SARS-CoV-2 (COVID-19) RNA SERA+probe Ql (Unsp spec) Detected Critically abnormal NOT DETECTED [facility] Comment on above: Result Comment: This test is not yet approved or cleared by the [place] FDA. When there are no FDA-approved or cleared tests available, and other criteria are met, FDA can make tests available under an emergency access mechanism called an Emergency Use Authorization (EUA). The EUA for this test is supported by the [place] of Health and Human Service's (HHS's) declaration [...] longer be used). Performed By: #### C [facility] #### [facility] [address] [place] [address] Dr. Eric Caldwell Covid-19 PCR ([facility])on 07-08 SARS-CoV-2 (COVID-19) RNA SERA+probe Ql (Unsp spec) Not detected Normal NOT DETECTED The [facility] Comment on above: Result Comment: This test is not yet approved or cleared by the [place] FDA. When there are no FDA-approved or cleared tests available, and other criteria are met, FDA can make tests available under an emergency access mechanism called an Emergency Use Authorization (EUA). The EUA for this test is supported by the [place] of Health and Human Service's (HHS's) declaration [...] consistent with SARS-CoV-2. Performed By: #### C VDTB #### [facility] [address] [address] [address] Eric Caldwell Encounters Encounter Date Encounter Type Care Provider Facility Start: 05-08-2024 End: 05-08-2024 ambulatory Noel Thakkar [facility] Facility:[facility] Start: 05-08-2024 End: 05-08-2024 Departed Referred DO Noel Almaguer [facility] Work Phone: [facility] [address] Work Phone: Start: 11-15-2023 ambulatory Facility:[facility] Start: 07-02-2022 Encounter for genera l adult medical examination without abnormal findings DR WALESKA ENRIQUEZ [facility] Start: 06-28-2022 End: 06-29-[address] WALESKA ENRIQUEZ Facility:[facility] Start: 06-28-2022 End: 06-29-2022 Encounter for general adult medical examination without abnormal findings DR WALESKA ENRIQUEZ Facility:[facility] Start: 09-13-2021 End: 09-13-[address] WALESKA ENRIQUEZ Facility:[facility] Start: 07-27-2021 End: 07-27-[address] WALESKA ENRIQUEZ Facility:[facility] Payers Date Payer Category Payer Self-pay 1985 Unknown [id number] 1986 Unknown [id number] 1986 Unknown [id number] 1959 Private Health Insurance [id number] 1958 Unknown [id number] Unknown [id number] Unknown Enoch BELTRAN/KATJA [id number] Social History Date Type Detail Facility [facility] smoked [facility] Work Phone: Start: 1985 Sex Assigned At Female F [facility] Evaluation note Note Date & Type Note Facility Evaluation note No assessment information availa ble [facility] Work Phone: Summary Purpose Family History No Family History Records FoundNo Family History Records FoundNo Family History Records Found Advance Directives No Advanced Directives Records FoundNo Advanced Directives Records FoundNo Advanced Directives Records Found Additional Source Comments INFORMATION SOURCE (unrecogn ized section and content) DATE CREATED AUTHOR 07/02/2022 [facility] DATE CREATED AUTHOR AUTHOR'S ORGANIZ ATION 11/16/2023 [facility] DATE CREATED AUTHOR AUTHOR'S ORGANIZ ATION 05/10/2024 [facility] Care Teams (unrecognized sec tion and content) Team Status: Inactive Member Role Status Dates Noel Thakkar - CHC , [facility] Attending Provider Active Start: May 08, 2024 End: May 08, 2024 Goals (unrecognized section and content) Goals may be documented in a n alternate section FOR RECORDS PERTAINING TO PATIENTS WHO ARE [...] BE BASED ON THE PRIMARY CLINICAL RECORDS. [employer] provides no warranty or guarantee of the accuracy or completeness of information in this document.
--- NOTE | 2024-06-20 17:52 | ED.GENADUL1 ---
HPI HPI - General Adult General Chief complaint: Back Pain/Injury Stated complaint: BACK PAIN Time Seen by Provider: 06/20/24 17:51 Source: patient Mode of arrival: walk-in Limitations: no limitations History of Present Illness HPI narrative: Patient presented to the emergency department for evaluation of back pain. 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 States when she tried to stand up she noted that her back was aching. She had a hard time standing. Patient states whenever she stands up straight, she feels crooked, feels like she cannot fully stand up straight. She having pain in the back, left hand right-sided, next to the spine, as well as low down. Patient states it is worse when she bends, twists, moves. She has had no numbness, tingling, weakness. No bowel or bladder incontinence, no numbness or tingling. No perineal or saddle anesthesia. Related Data Home Medications ?Medication ?Instructions ?Recorded ?Confirmed citalopram 40 mg tablet 40 mg PO DAILY 06/20/24 06/20/24 Previous Rx's ?Medication ?Instructions ?Recorded cyclobenzaprine 10 mg tablet 10 mg PO TID PRN muscle spasm #14 06/20/24 tabs naproxen 500 mg tablet 500 mg PO Q12H PRN pain #20 tabs 06/20/24 Allergies Allergy/AdvReac Type Severity Reaction Status Date / Time No Known Drug Allergies Allergy Verified 06/20/24 17:25 Opioid HPI Opioid Management Most Recent Opioid Data: No Data to Display Review of Systems ROS Narrative Negative unless otherwise stated in the HPI PFSH PFSH Social History Little interest or pleasure in doing things: not at all Feeling down, depressed, or hopeless: not at all Exam Narrative Exam Narrative: General: NAD, AAOx3, no distress Abdomen: Soft, ND/NT Back: No midline back pain or tenderness, paraspinal tenderness bilaterally, left greater than right lower lumbar tenderness, hypertonicity, spasm, no perineal anesthesia, no saddle anesthesia, normal rectal tone reported, positive EHL bilaterally, normal reflexes Neuro: Speech is clear and appropriate. Normal level of consciousness. Gait and coordination are normal. 5/5 strength in all extremities. Constitutional Vital Signs, click to edit/add: Last Vital Signs Temp 98.5 F 06/20/24 17:20 Pulse 96 H 06/20/24 17:20 Resp 16 06/20/24 17:20 BP 153/96 H 06/20/24 17:20 Pulse Ox 98 06/20/24 17:20 O2 Del Method Room Air 06/20/24 17:20 Course Vital Signs Vital signs: Vital Signs Temperature 98.5 F 06/20/24 17:20 Pulse Rate 96 H 06/20/24 17:20 Respiratory Rate 16 06/20/24 17:20 Blood Pressure 153/96 H 06/20/24 17:20 Pulse Oximetry 98 06/20/24 17:20 Oxygen Delivery Method Room Air 06/20/24 17:20 Temperature 98.5 F 06/20/24 17:20 Pulse Rate 96 H 06/20/24 17:20 Respiratory Rate 16 06/20/24 17:20 Blood Pressure 153/96 H 06/20/24 17:20 Pulse Oximetry 98 06/20/24 17:20 Oxygen Delivery Method Room Air 06/20/24 17:20 Medical Decision Making MDM Narrative Medical decision making narrative: Pt who presents with low back pain without signs of spinal cord compression, cauda equina syndrome, infection, aneurysm, or other serious etiology. The patient is neurologically intact. Xray imaging negative for fracture not indicated. Given the extremely low risk of these diagnoses further testing and evaluation for these possibilities does not appear to be indicated at this time. The patient has been instructed to return if the symptoms worsen or change in any way. Positive EHL bilaterally Advanced guidance has been given. Vss, pex is benign at this time. Pt to fu with pcp 1-2 days for reeval, rter should sx worsen, persist or become worrysome in any way. Pt expressed understanding and agreement with plan of care at this time. Will fu as planned. Pt stable for discharge. Discharge Plan Discharge Chief Complaint: Back Pain/Injury Clinical Impression: Back pain Patient Disposition: Home, Self-Care Time of Disposition Decision: 17:55 Prescriptions / Home Meds: New naproxen 500 mg tablet 500 mg PO Q12H PRN (Reason: pain) Qty: 20 0RF cyclobenzaprine 10 mg tablet 10 mg PO TID PRN (Reason: muscle spasm) Qty: 14 0RF No Action citalopram 40 mg tablet 40 mg PO DAILY Print Language: Slovenian Instructions: Acute Low Back Pain (ED) Additional Instructions: Follow-up with your PCP in the next 1 to 2 days. Return to the emergency department should symptoms worsen or become worrisome in any way. Referrals: Fan Ramos MD [Primary Care Provider] - 1 week
[2024-06-20] MEDS: KETOROLAC TROMETHAMINE 30 MG/ML VIAL 15 MG IM (18:11)
[2024-06-20] MEDS: METHYLPREDNISOLONE SOD SUCC PF 125 MG/2 ML VIAL IM (18:11)
--- NOTE | 2024-06-20 18:16 | PC.NURSE ---
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 No actual injury noted.
[2024-06-20 18:17] VITALS: PULSE 87; O2SAT 99
== END 2024-06-20 18:17 | disposition home or self-care (01) ==
PROVIDERS: Emergency Provider Emergency Medicine; PCP Family Medicine
DX: M54.50 Low back pain, unspecified (principal)
CPT/HCPCS: 96372; 99284; J1885; J2919

== ENCOUNTER 2024-07-17 15:45 | Outpatient (OUT) | payer OTHER, BC, SELFPAY | END 2024-07-17 15:46 | disposition home or self-care (01) | LOC: SLEEP 15:45 | PROVIDERS: PCP Nurse Practitioner Family; Visit Provider Nurse Practitioner Family | DX: G47.33 Obstructive sleep apnea (adult) (pediatric) (principal); R06.83 Snoring; R40.0 Somnolence; E66.9 Obesity, unspecified | CPT/HCPCS: 95806 ==

== ENCOUNTER 2024-07-20 07:28 | Outpatient (OUT) | payer OTHER, BC, SELFPAY ==
--- NOTE | 2024-07-20 | XR_ITS ---
The [address] [address] Patient Name: KENDRICK GARCIA MRN: [id number] date: 1985 Sex: F Assigned Patient Location: LAB Current Patient Location: Accession/Order Number: [id number] Exam Date: 07/20/2024 07:40 Report Date: 07/22/2024 07:42 At the request of: WALESKA ENRIQUEZ Procedure: XR lumbar spine min 4V EXAMINATION: XR lumbar spine min 4V HISTORY: F41.9 Anxiety COMPARISON: No relevant comparison available. FINDINGS: BONES: Normal. No significant spondylosis, scoliosis, fracture, or visible bony lesion. DISC SPACES: Normal. No significant disc height narrowing, subluxation, or endplate abnormality. PARASPINOUS: Negative. No paraspinous abnormality is seen. OTHER: Negative. XR/XR lumbar spine min 4V IMPRESSION: No acute radiographic abnormality Electronically authenticated by: JET HOANG Date: 07/22/2024 07:42
--- OUTSIDE RECORDS SUMMARY | 2024-07-20 07:30 | XMS_ITS | CCD ---
Author Organization [facility] Care Team Providers Care Hydroelectric Operator Name Role Phone MINA, DR GALEANO Admitting [...] HOY, DR GALEANO Consulting Unavailable [facility], Noel Miranda Attending Unavailable [facility], Noel Miranda Admitting Unavailable [facility], DO Noel Miranda Attending Provider Problems Active [...] Anion gap [Moles/Vol] 12.2 mmol/L Normal 6.0-15.0 [facility] Comment on above: Performed By: #### L IPID, BMP #### [address] Calcium [Mass/Vol] 9.5 mg/dL Normal 8.6-10.3 [facility] Comment on above: Performed By: #### L IPID, BMP #### [facility] [address] Chloride [Moles/Vol] 103 mmol/L Normal 98-107 [facility] Comment on above: Performed By: #### L IPID, BMP #### [facility] [address] CO2 [Moles/Vol] 26.9 mmol/L Normal 21.0-31.0 [facility] Comment on above: Performed By: #### L IPID, BMP #### [address] Creatinine [Mass/Vol] 0.79 mg/dL Normal 0.60-1.20 [facility] Comment on above: Performed By: #### L IPID, BMP #### [address] Glucose [Mass/Vol] 76 mg/dL Normal 70-100 [facility] Comment on above: Result Comment: [place] om Glucose Reference Range is dependent on time and content of last meal. Glucose of more than 200 mg/dL in a nonstressed, ambulatory subject supports the diagnosis of Diabetes Mellitus. ADA recommended reference range Performed By: #### L IPID, BMP #### [address] ADA recommended refe rence rangeRandom Glucose Reference Range is dependent on time and content of last meal. Glucose of more than 200 mg/dL in a nonstressed, ambulatory subject supports the diagnosis of Diabetes Mellitus. Potassium [Moles/Vol] 4.1 mmol/L Normal 3.5-5.1 [facility] Comment on above: Performed By: #### L IPID, BMP #### [address] Sodium [Moles/Vol] 138 mmol/L Normal 136-145 [facility] Comment on above: Performed By: #### L IPID, BMP #### [address] [place] [address] [place] Urea nitrogen [Mass/Vol] 19 mg/dL Normal 7-25 [facility] Comment on above: Performed By: #### L IPID, BMP #### [facility] [id number] [facility] Basic Metabolic Panelon 100 GFR/1.73 sq M.predicted MDRD (S/P/Bld) [Vol rate/Area] mL/min/{1.73_m2} Normal [facility] Comment on above: Performed By: #### L IPID, BMP #### [facility] [address] Cholesterol in LDL Calc [Mas s/Vol]Ordered By: Noel Thakkar on 05-08-2024 Cholesterol in LDL [Mass/Vol] 113 mg/dL High 0-100 [facility] Comment on above: LDL ATP III CLASSIFI CATIONLDL less than 100 mg/dL OptimalLDL 100-129 mg/dL Near or above optimalLDL 130-159 mg/dL Borderline highLDL 160-189 mg/dL HighLDL greater than 189 mg/dL Very high Cholesterol in VLDL Calc [Ma ss/Vol]Ordered By: Noel Thakkar on 05-08-2024 Cholesterol in VLDL [Mass/Vol] 47 mg/dL [facility] Lipid PanelOrdered By: Noel Thakkar on 05-08-2024 Cholesterol [Mass/Vol] 207 mg/dL High 140-200 [facility] Comment on above: Result Comment: Chol less than 200 mg/dl low risk Chol 201-239 mg/dl borderline risk Chol 240 mg/dl and greater high risk Performed By: #### L IPID, BMP #### [facility] [id number] [facility] Chol less than 200 m g/dl low riskChol 201-239 mg/dl borderline riskChol 240 mg/dl and greater high risk Cholesterol in HDL [Mass/Vol] 47 mg/dL Normal 23-92 [facility] Comment on above: Result Comment: HDL CHOL ATP-III CLASSIFICATION Cardiovascular Risk HDL > or equal to 60 mg/dL LOW HDL < 40 mg/dL HIGH Performed By: #### L IPID, BMP #### [facility] [address] [place] [address] HDL CHOL ATP-III CLA SSIFICATION Cardiovascular RiskHDL > or equal to 60 mg/dL LOWHDL < 40 mg/dL HIGH Cholesterol.total/Chol esterol in HDL [Mass ratio] 4.4 {ratio} Normal <5.0 [facility] Comment on above: Result Comment: PERF ORMED BY: [place] [address] PATHOLOGIST PRIVATE WATCHMAN ROCIO PERRY M.D. Performed By: #### L IPID, BMP #### [address] Lipid Panelon 05-08-2024 LDL Cholesterol,Calculated 113 mg/dL High 0-100 [facility] Comment on above: Result Comment: LDL ATP III CLASSIFICATION LDL less than 100 mg/dL Optimal LDL 100-129 mg/dL Near or above optimal LDL 130-159 mg/dL Borderline high LDL 160-189 mg/dL High LDL greater than 189 mg/dL Very high Performed By: #### L IPID, BMP #### [facility] [address] [place] [address] Triglyceride w/Reflex 237 mg/dL High 0-149 [facility] Comment on above: Result Comment: TRIG ATP III CLASSIFICATION TRIG less than 150 mg/dL Normal TRIG 150-199 mg/dL Borderline high TRIG 200-500 mg/dL High TRIG greater than 500 mg/dL Very high Standard traceable to the Center for Disease Conrtrol and Prevention (CDC) test method. Performed By: #### L IPID, BMP #### [facility] [address] [place] [address] VLDL CHOLESTEROL 47 mg/dL Normal [facility] Comment on above: Performed By: #### L IPID, BMP #### [address] No Panel InformationOrdered By: Noel Thakkar on 05-08-2024 Estimated GFR (CKD-EPI) > 60.0 mL/Min [facility] Creatinine Clearance (Chem N/A [facility] Triglyceride [Mass/volume] i n Serum or PlasmaOrdered By: Noel Thakkar on 05-08-2024 Triglyceride [Mass/Vol] 237 mg/dL High 0-149 [facility] Comment on above: TRIG ATP III CLASSIF ICATIONTRIG less than 150 mg/dL NormalTRIG 150-199 mg/dL Borderline highTRIG 200-500 mg/dL High TRIG greater than 500 mg/dL Very highStandard traceable to the Center for Disease Conrtrol and Prevention (CDC) test method. CBC AUTO DIFFon 06-28-2022 BASO # 0.0 103/ul Normal 0.0-0.1 [facility] Comment on above: Performed By: #### C BC #### [facility] [address] [address] [address] Eric Caldwell Basophils/100 WBC (Bld) 0.3 % Normal 0.2-2.0 [facility] Comment on above: Performed By: #### C BC #### [facility] [address] [address] [address] Eric Caldwell EO # 0.1 103/ul Normal 0.0-0.7 [facility] Comment on above: Performed By: #### C BC #### [facility] [address] [address] [address] Eric Caldwell Eosinophils/100 WBC (Bld) 0.9 % Normal 0.9-7.0 [facility] Comment on above: Performed By: #### C BC #### [facility] [address] [address] [address] Eric Caldwell Erythrocyte distribution width (RBC) [Ratio] 12.4 % Normal 11.0-15.0 [facility] Comment on above: Performed By: #### C BC #### [facility] [address] [address] [address] Eric Caldwell Hematocrit (Bld) [Volume fraction] 40.6 % Normal 36.0-48.0 [facility] Comment on above: Performed By: #### C BC #### [facility] [address] [address] [address] Eric Caldwell Hemoglobin (Bld) [Mass/Vol] 13.6 g/dL Normal 12.0-16.0 [facility] Comment on above: Performed By: #### C BC #### [facility] [address] [place] [address] Dr. Eric Caldwell IG # 0.01 10e3/ul Normal 0.00-0.03 [facility] Comment on above: Performed By: #### C BC #### [facility] [address] [place] [address] Dr. Eric Caldwell IG % 0.1 % Normal 0.0-0.5 [facility] Comment on above: Performed By: #### C BC #### [facility] [address] [place] [address] Dr. Eric Caldwell LYMPH # 2.0 103/ul Normal 1.2-3.8 [facility] Comment on above: Performed By: #### C BC #### [facility] [address] [place] [address] Dr. Eric Caldwell Lymphocytes/100 WBC (Bld) 26.2 % Normal 20.5-60.0 [facility] Comment on above: Performed By: #### C BC #### [facility] [address] [place] [address] Dr. Eric Caldwell MANUAL DIFF REQ NO Normal [facility] Comment on above: Performed By: #### C BC #### [facility] [address] [place] [address] Dr. Eric Caldwell MCH (RBC) [Entitic mass] 30.0 pg Normal 26.7-34.0 [facility] Comment on above: Performed By: #### C BC #### [facility] [address] [place] [address] Dr. Eric Caldwell MCHC (RBC) [Mass/Vol] 33.5 g/dL Normal 29.9-35.2 [facility] Comment on above: Performed By: #### C BC #### [facility] [address] [place] [address] Dr. Eric Caldwell MCV (RBC) [Entitic vol] 89.6 fL Normal 81.0-99.0 [facility] Comment on above: Performed By: #### C BC #### [facility] [address] [place] [address] Dr. Eric Caldwell MONO # 0.4 103/ul Normal 0.3-0.8 [facility] Comment on above: Performed By: #### C BC #### [facility] [address] [place] [address] Dr. Eric Caldwell Monocytes/100 WBC (Bld) 5.8 % Normal 1.7-12.0 [facility] Comment on above: Performed By: #### C BC #### [facility] [address] [place] [address] Dr. Eric Caldwell NEUT # 5.0 103/ul Normal 1.4-6.5 [facility] Comment on above: Performed By: #### C BC #### [facility] [address] [place] [address] Dr. Eric Caldwell Neutrophils/100 WBC (Bld) 66.7 % Normal 43.0-75.0 [facility] Comment on above: Performed By: #### C BC #### [facility] [address] [place] [address] Dr. Eric Caldwell Platelet mean volume (Bld) [Entitic vol] 10.6 fL Normal 9.5-13.5 [facility] Comment on above: Performed By: #### C BC #### [facility] [address] [place] [address] Dr. Eric Caldwell PLT 198 103/ul Normal 150-[address] [facility] Comment on above: Performed By: #### C BC #### [facility] [address] [place] [address] Dr. Eric Caldwell RBC 4.53 106/ul Normal 4.20-5.[address] [facility] Comment on above: Performed By: #### C BC #### [facility] [address] [place] [address] Dr. Eric Caldwell WBC 7.5 103/ul Normal 4.0-11.[address] [facility] Comment on above: Performed By: #### C BC #### [facility] [address] [address] [address] Eric Caldwell FREE THYROXINE INDEX T7on FTI 1.95 Normal 1.30-4.50 [facility] Comment on above: Performed By: #### T SH, T7, LIPID, CMP #### [facility] [address] [place] [address] Dr. Eric Caldwell T3U 33.0 % Normal 30.0-39.0 [facility] Comment on above: Performed By: #### T SH, T7, LIPID, CMP #### [facility] [address] [place] [address] Dr. Eric Caldwell T4 [Mass/Vol] 5.90 ug/dL Normal 4.80-13.90 [facility] Comment on above: Performed By: #### T SH, T7, LIPID, CMP #### [facility] [address] [place] [address] Dr. Eric Caldwell GLYCOHEMOGLOBIN A1Con 2021 ADA RECOMMENDATION SEE BELOW Normal [facility] Comment on above: Result Comment: ADA RECOMMENDED LIMIT 4.0 - 6.0 ADA THERAPEUTIC TARGET < 7.0 ACTION SUGGESTED > 7.0 Performed By: #### A 1C #### [facility] [address] [place] [address] Dr. Eric Caldwell Glucose [Mass/Vol] 88 mg/dL Normal [facility] Comment on above: Performed By: #### A 1C #### [facility] [address] [place] [address] Dr. Eric Caldwell HbA1c (Bld) [Mass fraction] 4.7 % Normal 4.5-6.2 [facility] Comment on above: Performed By: #### A 1C #### [facility] [address] [place] [address] Dr. Eric Caldwell LIPID PROFILEon 06-28-2022 CHOL-HDL RATIO NORM SEE BELOW Normal [facility] Comment on above: Result Comment: 3.3 - 4.4 LOW RISK 4.4 - 7.1 AVERAGE RISK 7.1 - 11.0 MODERATE RISK >11.0 HIGH RISK Performed By: #### T SH, T7, LIPID, CMP #### [facility] [address] [address] [address] Eric Caldwell Cholesterol [Mass/Vol] 166 mg/dL Normal <=200 [facility] Comment on above: Performed By: #### T SH, T7, LIPID, CMP #### [facility] [address] [address] [address] Eric Caldwell Cholesterol in HDL [Mass/Vol] 51 mg/dL Normal 40-60 [facility] Comment on above: Performed By: #### T SH, T7, LIPID, CMP #### [facility] [address] [address] [address] Eric Caldwell Cholesterol in LDL [Mass/Vol] 99.6 mg/dL Normal [facility] Comment on above: Performed By: #### T SH, T7, LIPID, CMP #### [facility] [address] [place] [address] Dr. Eric Caldwell Cholesterol.total/Chol esterol in HDL [Mass ratio] 3.3 {ratio} Normal [facility] Comment on above: Performed By: #### T SH, T7, LIPID, CMP #### [facility] [address] [address] [address] Eric Caldwell HDL NORMAL > or = 60 mg/dl - LO W CARDIOVASCULAR RISK <40 mg/dl - HIGH CARDIOVASCULAR RISK Normal [facility] Comment on above: Performed By: #### T SH, T7, LIPID, CMP #### [facility] [address] [address] [address] Eric Caldwell LDL CALC NORMAL SEE BELOW Normal [facility] Comment on above: Result Comment: <100 mg/dl OPTIMAL 100 - 129 mg/dl NEAR OR ABOVE OPTIMAL 130 - 159 mg/dl BORDERLINE HIGH 160 - 189 mg/dl HIGH >190 mg/dl VERY HIGH Performed By: #### T SH, T7, LIPID, CMP #### [facility] [address] [address] [address] Eric Caldwell Triglyceride [Mass/Vol] 77 mg/dL Normal <=150 [facility] Comment on above: Performed By: #### T SH, T7, LIPID, CMP #### [facility] [address] [address] [address] Eric Caldwell VLDL CALC 15.4 mg/dL Normal [facility] Comment on above: Performed By: #### T SH, T7, LIPID, CMP #### [facility] [address] [address] [address] Eric Caldwell PROF 14(COMP METB)on 022 Albumin [Mass/Vol] 3.4 g/dL Normal 3.4-5.0 [facility] Comment on above: Performed By: #### T SH, T7, LIPID, CMP #### [facility] [address] [address] [address] Eric Caldwell Albumin/Globulin [Mass ratio] 0.9 {ratio} Normal [facility] Comment on above: Performed By: #### T SH, T7, LIPID, CMP #### [facility] [address] [address] [address] Eric Caldwell ALP [Catalytic activity/Vol] 52 U/L Normal 46-116 [facility] Comment on above: Performed By: #### T SH, T7, LIPID, CMP #### [facility] [address] [address] [address] Eric Caldwell ALT [Catalytic activity/Vol] 26 U/L Normal 14-59 [facility] Comment on above: Performed By: #### T SH, T7, LIPID, CMP #### [facility] [address] [address] [address] Eric Caldwell Anion gap [Moles/Vol] 11.1 mmol/L Normal [facility] Comment on above: Performed By: #### T SH, T7, LIPID, CMP #### [facility] [address] [address] [address] Eric Caldwell AST [Catalytic activity/Vol] 15 U/L Normal 15-37 [facility] Comment on above: Performed By: #### T SH, T7, LIPID, CMP #### [facility] [address] [address] [address] Eric Caldwell Bilirubin [Mass/Vol] 0.5 mg/dL Normal 0.2-1.0 [facility] Comment on above: Performed By: #### T SH, T7, LIPID, CMP #### [facility] [address] [place] [address] Dr. Eric Caldwell Calcium [Mass/Vol] 8.7 mg/dL Normal 8.5-10.1 [facility] Comment on above: Performed By: #### T SH, T7, LIPID, CMP #### [facility] [address] [place] [address] Dr. Eric Caldwell Chloride [Moles/Vol] 105 mmol/L Normal 98-[address] [facility] Comment on above: Performed By: #### T SH, T7, LIPID, CMP #### [facility] [address] [place] [address] Dr. Eric Caldwell CO2 [Moles/Vol] 23.9 mmol/L Normal 21.0-32.0 [facility] Comment on above: Performed By: #### T SH, T7, LIPID, CMP #### [facility] [address] [place] [address] Dr. Eric Caldwell Creatinine [Mass/Vol] 0.62 mg/dL Normal 0.55-1.02 [facility] Comment on above: Performed By: #### T SH, T7, LIPID, CMP #### [facility] [address] [place] [address] Dr. Eric Caldwell EGFR-AF ROMANIAN >60 Normal >=60 [facility] Comment on above: Performed By: #### T SH, T7, LIPID, CMP #### [facility] [address] [place] [address] Dr. Eric Caldwell EGFR-NON AF ROMANIAN >60 Normal >=60 [facility] Comment on above: Performed By: #### T SH, T7, LIPID, CMP #### [facility] [address] [place] [address] Dr. Eric Caldwell Globulin (S) [Mass/Vol] 3.6 g/dL Normal [facility] Comment on above: Performed By: #### T SH, T7, LIPID, CMP #### [facility] [address] [place] [address] Dr. Eric Caldwell Glucose [Mass/Vol] 97 mg/dL Normal 74-106 [facility] Comment on above: Performed By: #### T SH, T7, LIPID, CMP #### [facility] [address] [address] [address] Eric Caldwell Potassium [Moles/Vol] 4.0 mmol/L Normal 3.5-5.1 [facility] Comment on above: Performed By: #### T SH, T7, LIPID, CMP #### [facility] [address] [address] [address] Eric Caldwell Protein [Mass/Vol] 7.0 g/dL Normal 6.4-8.2 [facility] Comment on above: Performed By: #### T SH, T7, LIPID, CMP #### [facility] [address] [address] [address] Eric Caldwell Sodium [Moles/Vol] 136 mmol/L Normal 136-145 [facility] Comment on above: Performed By: #### T SH, T7, LIPID, CMP #### [facility] [address] [address] [address] Eric Caldwell Urea nitrogen [Mass/Vol] 11.0 mg/dL Normal 7.0-18.0 [facility] Comment on above: Performed By: #### T SH, T7, LIPID, CMP #### [facility] [address] [address] [address] Eric Caldwell Urea nitrogen/Creatinine [Mass ratio] 17.7 mg/mg Normal [facility] Comment on above: Performed By: #### T SH, T7, LIPID, CMP #### [facility] [address] [address] [address] Eric Caldwell TSHon 06-28-2022 TSH 3.734 uIU/mL Normal 0.358-3.740 [facility] Comment on above: Performed By: #### T SH, T7, LIPID, CMP #### [facility] [address] [address] [address] Eric Caldwell Covid-19 PCR ([facility])on SARS-CoV-2 (COVID-19) RNA SERA+probe Ql (Unsp spec) Detected Critically abnormal NOT DETECTED [facility] Comment on above: Result Comment: This test is not yet approved or cleared by the [place] FDA. When there are no FDA-approved or cleared tests available, and other criteria are met, FDA can make tests available under an emergency access mechanism called an Emergency Use Authorization (EUA). The EUA for this test is supported by the [place] of Health and Human Service's (HHS's) declaration [...] longer be used). Performed By: #### C [facility] #### [facility] [address] [place] [address] Dr. Eric Caldwell Covid-19 PCR ([facility])on 07-08 SARS-CoV-2 (COVID-19) RNA SERA+probe Ql (Unsp spec) Not detected Normal NOT DETECTED [facility] Comment on above: Result Comment: This test is not yet approved or cleared by the [place] FDA. When there are no FDA-approved or cleared tests available, and other criteria are met, FDA can make tests available under an emergency access mechanism called an Emergency Use Authorization (EUA). The EUA for this test is supported by the [place] of Health and Human Service's (HHS's) declaration [...] SARS-CoV-2. Performed By: #### C VDTB #### [facility] [address] [address] [address] Eric Caldwell Encounters Encounter Date Encounter Type Care Provider Facility Start: 05-08-2024 End: 05-08-2024 ambulatory Noel Thakkar [facility] Facility:[facility] Start: 05-08-2024 End: 05-08-2024 Departed Referred DO Noel Almaguer [facility] Work Phone: [facility] [address] Work Phone: Start: 11-15-2023 ambulatory Facility:[facility] Start: 07-02-2022 Encounter for genera l adult medical examination without abnormal findings DR WALESKA ENRIQUEZ [facility] Start: 06-28-2022 End: 06-29-[address] WALESKA ENRIQUEZ Facility:[facility] Start: 06-28-2022 End: 06-29-2022 Encounter for general adult medical examination without abnormal findings DR WALESKA ENRIQUEZ Facility:[facility] Start: 09-13-2021 End: 09-13-[address] WALESKA ENRIQUEZ Facility:[facility] Start: 07-27-2021 End: 07-27-[address] WALESKA ENRIQUEZ Facility:[facility] Payers Date Payer Category Payer Self-pay 1985 Unknown [id number] 1986 Unknown [id number] 1986 Unknown [id number] 1959 Private Health Insurance [id number] 1958 Unknown [id number] Unknown [id number] Unknown Enoch BELTRAN/KATJA [id number] Social History Date Type Detail [facility] Work Phone: Start: 1985 Sex Assigned At Female F [facility] Evaluation note Note Date & Type Note Facility Evaluation note No assessment information availa ble [facility] Work Phone: Summary Purpose Family History No Family History Records FoundNo Family History Records FoundNo Family History Records Found Advance Directives No Advanced Directives Records FoundNo Advanced Directives Records FoundNo Advanced Directives Records Found Additional Source Comments INFORMATION SOURCE (unrecogn ized section and content) DATE CREATED AUTHOR 07/02/2022 [facility] DATE CREATED AUTHOR AUTHOR'S ORGANIZ ATION 11/16/2023 [facility] DATE CREATED AUTHOR AUTHOR'S ORGANIZ ATION 05/10/2024 [facility] Care Teams (unrecognized sec tion [...] BE BASED ON THE PRIMARY CLINICAL RECORDS. [employer] provides no warranty or guarantee of the accuracy or completeness of information in this document.
[2024-07-20 08:09] LABS: Estimated Average Glucose 97 mg/dL
[2024-07-20 08:32] LABS: Alanine Aminotransferase 28 U/L (14-59); Albumin Globulin Ratio 0.9; Albumin Level 3.3 g/dL (3.4-5.0); Alkaline Phosphatase 59 U/L (46-116); Anion Gap 13.5; Aspartate Amino Transferase 18 U/L (15-37); Bilirubin Total 0.5 mg/dL (0.2-1.0); Calcium 8.6 mg/dL (8.5-10.1); Carbon Dioxide 26.4 mmol/L (21.0-32.0); Chloride 107 mmol/L (98-107); Chol HDL Ratio 2.7; Cholesterol 162 mg/dL (<=200); Estimated GFR (African America >60 (>=60 mL/min/1.73m^2); Estimated GFR (Non-African Ame >60 (>=60 mL/min/1.73m^2); Free T3 2.31 pg/mL (2.18-3.98); Globulin 3.5 g/dL; Glucose 93 mg/dL (74-106); HDL Cholesterol 59 mg/dL (40-60); LDL Cholesterol Calculated 81.6 mg/dL; Potassium 3.9 mmol/L (3.5-5.1); Sodium 143 mmol/L (136-145); Thyroid Stimulating Hormone 5.777 uIU/mL (0.358-3.740); Total Protein 6.8 g/dL (6.4-8.2); Triglycerides 107 mg/dL (<=150); VLDL CHOLESTEROL 21.4 mg/dL
== END 2024-07-20 07:29 | disposition home or self-care (01) ==
LOC: LAB 07:28
PROVIDERS: PCP Family Medicine; Visit Provider Family Medicine
DX: Z00.00 Encounter for general adult medical examination without abnormal findings (principal); F41.9 Anxiety disorder, unspecified; M54.50 Low back pain, unspecified; R53.83 Other fatigue
CPT/HCPCS: 36415; 72110; 80053; 80061; 83036; 84436; 84443; 84481

== ENCOUNTER 2024-08-05 09:55 | Outpatient (RCR) | payer OTHER, BC, SELFPAY | END 2024-08-06 14:30 | disposition home or self-care (01) | LOC: PT 09:55 | PROVIDERS: PCP Nurse Practitioner Family; Visit Provider Family Medicine | DX: M54.50 Low back pain, unspecified (principal) | CPT/HCPCS: 97110; 97161 ==

== ENCOUNTER 2024-08-05 20:33 | Outpatient (OUT) | payer OTHER, BC, SELFPAY ==
--- OUTSIDE RECORDS SUMMARY | 2024-08-05 20:36 | XMS_ITS | CCD ---
Author Organization [facility] Care Team Providers Care Transonic Engineer Name Role Phone MINA, DR GALEANO Admitting [...] HOY, DR GALEANO Consulting Unavailable Kuns - [facility], Noel Miranda Attending Unavailable [facility] - [facility], Noel Miranda Admitting Unavailable [facility]uns - [facility], DO Noel Miranda Attending Provider Problems [...] Anion gap [Moles/Vol] 12.2 mmol/L Normal 6.0-15.0 [facility] Comment on above: Performed By: #### L IPID, BMP #### [address] Calcium [Mass/Vol] 9.5 mg/dL Normal 8.6-10.3 [facility] Comment on above: Performed By: #### L IPID, BMP #### [facility] [address] Chloride [Moles/Vol] 103 mmol/L Normal 98-107 [facility] Comment on above: Performed By: #### L IPID, BMP #### [facility] [address] CO2 [Moles/Vol] 26.9 mmol/L Normal 21.0-31.0 [facility] Comment on above: Performed By: #### L IPID, BMP #### [address] Creatinine [Mass/Vol] 0.79 mg/dL Normal 0.60-1.20 [facility] Comment on above: Performed By: #### L IPID, BMP #### [address] Glucose [Mass/Vol] 76 mg/dL Normal 70-100 [facility] Comment on above: Result Comment: [place] om Glucose Reference Range is dependent on time and content of last meal. Glucose of more than 200 mg/dL in a nonstressed, ambulatory subject supports the diagnosis of Diabetes Mellitus. ADA recommended reference range Performed By: #### L IPID, BMP #### [address] ADA recommended refe rence rangeRandom Glucose Reference Range is dependent on time and content of last meal. Glucose of more than 200 mg/dL in a nonstressed, ambulatory subject supports the diagnosis of Diabetes Mellitus. Potassium [Moles/Vol] 4.1 mmol/L Normal 3.5-5.1 [facility] Comment on above: Performed By: #### L IPID, BMP #### [address] Sodium [Moles/Vol] 138 mmol/L Normal 136-145 [facility] Comment on above: Performed By: #### L IPID, BMP #### [address] [place] [address] [place] Urea nitrogen [Mass/Vol] 19 mg/dL Normal 7-25 [facility] Comment on above: Performed By: #### L IPID, BMP #### [facility] [address] [place] [id number] [facility] Basic Metabolic Panelon 100 GFR/1.73 sq M.predicted MDRD (S/P/Bld) [Vol rate/Area] mL/min/{1.73_m2} Normal [facility] Comment on above: Performed By: #### L IPID, BMP #### [facility] [address] Cholesterol in LDL Calc [Mas s/Vol]Ordered By: Noel Thakkar on 05-08-2024 Cholesterol in LDL [Mass/Vol] 113 mg/dL High 0-100 [facility] Comment on above: LDL ATP III CLASSIFI CATIONLDL less than 100 mg/dL OptimalLDL 100-129 mg/dL Near or above optimalLDL 130-159 mg/dL Borderline highLDL 160-189 mg/dL HighLDL greater than 189 mg/dL Very high Cholesterol in VLDL Calc [Ma ss/Vol]Ordered By: Noel Thakkar on 05-08-2024 Cholesterol in VLDL [Mass/Vol] 47 mg/dL [facility] Lipid PanelOrdered By: Noel Thakkar on 05-08-2024 Cholesterol [Mass/Vol] 207 mg/dL High 140-200 [facility] Comment on above: Result Comment: Chol less than 200 mg/dl low risk Chol 201-239 mg/dl borderline risk Chol 240 mg/dl and greater high risk Performed By: #### L IPID, BMP #### [facility] [address] [place] [id number] [facility] Chol less than 200 m g/dl low riskChol 201-239 mg/dl borderline riskChol 240 mg/dl and greater high risk Cholesterol in HDL [Mass/Vol] 47 mg/dL Normal 23-92 [facility] Comment on above: Result Comment: HDL CHOL ATP-III CLASSIFICATION Cardiovascular Risk HDL > or equal to 60 mg/dL LOW HDL < 40 mg/dL HIGH Performed By: #### L IPID, BMP #### [facility] [address] [place] [address] HDL CHOL ATP-III CLA SSIFICATION Cardiovascular RiskHDL > or equal to 60 mg/dL LOWHDL < 40 mg/dL HIGH Cholesterol.total/Chol esterol in HDL [Mass ratio] 4.4 {ratio} Normal <5.0 [facility] Comment on above: Result Comment: PERF ORMED BY: [place] [address] PATHOLOGIST CORPORATE ANALYST ROCIO PERRY M.D. Performed By: #### L IPID, BMP #### [address] Lipid Panelon 05-08-2024 LDL Cholesterol,Calculated 113 mg/dL High 0-100 [facility] Comment on above: Result Comment: LDL ATP III CLASSIFICATION LDL less than 100 mg/dL Optimal LDL 100-129 mg/dL Near or above optimal LDL 130-159 mg/dL Borderline high LDL 160-189 mg/dL High LDL greater than 189 mg/dL Very high Performed By: #### L IPID, BMP #### [facility] [address] [place] [address] Triglyceride w/Reflex 237 mg/dL High 0-149 [facility] Comment on above: Result Comment: TRIG ATP III CLASSIFICATION TRIG less than 150 mg/dL Normal TRIG 150-199 mg/dL Borderline high TRIG 200-500 mg/dL High TRIG greater than 500 mg/dL Very high Standard traceable to the Center for Disease Conrtrol and Prevention (CDC) test method. Performed By: #### L IPID, BMP #### [facility] [address] [place] [address] VLDL CHOLESTEROL 47 mg/dL Normal [facility] Comment on above: Performed By: #### L IPID, BMP #### [address] No Panel InformationOrdered By: Noel Thakkar on 05-08-2024 Estimated GFR (CKD-EPI) > 60.0 mL/Min [facility] Creatinine Clearance (Chem N/A [facility] Triglyceride [Mass/volume] i n Serum or PlasmaOrdered By: Noel Thakkar on 05-08-2024 Triglyceride [Mass/Vol] 237 mg/dL High 0-149 [facility] Comment on above: TRIG ATP III CLASSIF ICATIONTRIG less than 150 mg/dL NormalTRIG 150-199 mg/dL Borderline highTRIG 200-500 mg/dL High TRIG greater than 500 mg/dL Very highStandard traceable to the Center for Disease Conrtrol and Prevention (CDC) test method. CBC AUTO DIFFon 06-28-2022 BASO # 0.0 103/ul Normal 0.0-0.1 [facility] Comment on above: Performed By: #### C BC #### [facility] [address] [address] [address] Eric Caldwell Basophils/100 WBC (Bld) 0.3 % Normal 0.2-2.0 [facility] Comment on above: Performed By: #### C BC #### [facility] [address] [address] [address] Eric Caldwell EO # 0.1 103/ul Normal 0.0-0.7 [facility] Comment on above: Performed By: #### C BC #### [facility] [address] [address] [address] Eric Caldwell Eosinophils/100 WBC (Bld) 0.9 % Normal 0.9-7.0 [facility] Comment on above: Performed By: #### C BC #### [facility] [address] [address] [address] Eric Caldwell Erythrocyte distribution width (RBC) [Ratio] 12.4 % Normal 11.0-15.0 [facility] Comment on above: Performed By: #### C BC #### [facility] [address] [address] [address] Eric Caldwell Hematocrit (Bld) [Volume fraction] 40.6 % Normal 36.0-48.0 [facility] Comment on above: Performed By: #### C BC #### [facility] [address] [address] [address] Eric Caldwell Hemoglobin (Bld) [Mass/Vol] 13.6 g/dL Normal 12.0-16.0 [facility] Comment on above: Performed By: #### C BC #### [facility] [address] [place] [address] Dr. Eric Caldwell IG # 0.01 10e3/ul Normal 0.00-0.03 [facility] Comment on above: Performed By: #### C BC #### [facility] [address] [place] [address] Dr. Eric Caldwell IG % 0.1 % Normal 0.0-0.5 [facility] Comment on above: Performed By: #### C BC #### [facility] [address] [place] [address] Dr. Eric Caldwell LYMPH # 2.0 103/ul Normal 1.2-3.8 [facility] Comment on above: Performed By: #### C BC #### [facility] [address] [place] [address] Dr. Eric Caldwell Lymphocytes/100 WBC (Bld) 26.2 % Normal 20.5-60.0 [facility] Comment on above: Performed By: #### C BC #### [facility] [address] [place] [address] Dr. Eric Caldwell MANUAL DIFF REQ NO Normal [facility] Comment on above: Performed By: #### C BC #### [facility] [address] [place] [address] Dr. Eric Caldwell MCH (RBC) [Entitic mass] 30.0 pg Normal 26.7-34.0 [facility] Comment on above: Performed By: #### C BC #### [facility] [address] [place] [address] Dr. Eric Caldwell MCHC (RBC) [Mass/Vol] 33.5 g/dL Normal 29.9-35.2 [facility] Comment on above: Performed By: #### C BC #### [facility] [address] [place] [address] Dr. Eric Caldwell MCV (RBC) [Entitic vol] 89.6 fL Normal 81.0-99.0 [facility] Comment on above: Performed By: #### C BC #### [facility] [address] [place] [address] Dr. Eric Caldwell MONO # 0.4 103/ul Normal 0.3-0.8 [facility] Comment on above: Performed By: #### C BC #### [facility] [address] [place] [address] Dr. Eric Caldwell Monocytes/100 WBC (Bld) 5.8 % Normal 1.7-12.0 [facility] Comment on above: Performed By: #### C BC #### [facility] [address] [place] [address] Dr. Eric Caldwell NEUT # 5.0 103/ul Normal 1.4-6.5 [facility] Comment on above: Performed By: #### C BC #### [facility] [address] [place] [address] Dr. Eric Caldwell Neutrophils/100 WBC (Bld) 66.7 % Normal 43.0-75.0 [facility] Comment on above: Performed By: #### C BC #### [facility] [address] [place] [address] Dr. Eric Caldwell Platelet mean volume (Bld) [Entitic vol] 10.6 fL Normal 9.5-13.5 [facility] Comment on above: Performed By: #### C BC #### [facility] [address] [place] [address] Dr. Eric Caldwell PLT 198 103/ul Normal 150-450 [facility] Comment on above: Performed By: #### C BC #### [facility] [address] [place] [address] Dr. Eric Caldwell RBC 4.53 106/ul Normal 4.20-5.40 [facility] Comment on above: Performed By: #### C BC #### [facility] [address] [place] [address] Dr. Eric Caldwell WBC 7.5 103/ul Normal 4.0-11.0 [facility] Comment on above: Performed By: #### C BC #### [facility] [address] [address] [address] Eric Caldwell FREE THYROXINE INDEX T7on FTI 1.95 Normal 1.30-4.50 [facility] Comment on above: Performed By: #### T SH, T7, LIPID, CMP #### [facility] [address] [place] [address] Dr. Eric Caldwell T3U 33.0 % Normal 30.0-39.0 [facility] Comment on above: Performed By: #### T SH, T7, LIPID, CMP #### [facility] [address] [place] [address] Dr. Eric Caldwell T4 [Mass/Vol] 5.90 ug/dL Normal 4.80-13.90 [facility] Comment on above: Performed By: #### T SH, T7, LIPID, CMP #### [facility] [address] [place] [address] Dr. Eric Caldwell GLYCOHEMOGLOBIN A1Con 2021 ADA RECOMMENDATION SEE BELOW Normal [facility] Comment on above: Result Comment: ADA RECOMMENDED LIMIT 4.0 - 6.0 ADA THERAPEUTIC TARGET < 7.0 ACTION SUGGESTED > 7.0 Performed By: #### A 1C #### [facility] [address] [place] [address] Dr. Eric Caldwell Glucose [Mass/Vol] 88 mg/dL Normal [facility] Comment on above: Performed By: #### A 1C #### [facility] [address] [place] [address] Dr. Eric Caldwell HbA1c (Bld) [Mass fraction] 4.7 % Normal 4.5-6.2 [facility] Comment on above: Performed By: #### A 1C #### [facility] [address] [place] [address] Dr. Erci Caldwell LIPID PROFILEon 06-28-2022 CHOL-HDL RATIO NORM SEE BELOW Normal [facility] Comment on above: Result Comment: 3.3 - 4.4 LOW RISK 4.4 - 7.1 AVERAGE RISK 7.1 - 11.0 MODERATE RISK >11.0 HIGH RISK Performed By: #### T SH, T7, LIPID, CMP #### [facility] [address] [address] [address] Eric Caldwell Cholesterol [Mass/Vol] 166 mg/dL Normal <=200 [facility] Comment on above: Performed By: #### T SH, T7, LIPID, CMP #### [facility] [address] [address] [address] Eric Caldwell Cholesterol in HDL [Mass/Vol] 51 mg/dL Normal 40-60 [facility] Comment on above: Performed By: #### T SH, T7, LIPID, CMP #### [facility] [address] [address] [address] Eric Caldwell Cholesterol in LDL [Mass/Vol] 99.6 mg/dL Normal [facility] Comment on above: Performed By: #### T SH, T7, LIPID, CMP #### [facility] [address] [place] [address] Dr. Eric Caldwell Cholesterol.total/Chol esterol in HDL [Mass ratio] 3.3 {ratio} Normal [facility] Comment on above: Performed By: #### T SH, T7, LIPID, CMP #### [facility] [address] [address] [address] Eric Caldwell HDL NORMAL > or = 60 mg/dl - LO W CARDIOVASCULAR RISK <40 mg/dl - HIGH CARDIOVASCULAR RISK Normal [facility] Comment on above: Performed By: #### T SH, T7, LIPID, CMP #### [facility] [address] [address] [address] Eric Caldwell LDL CALC NORMAL SEE BELOW Normal [facility] Comment on above: Result Comment: <100 mg/dl OPTIMAL 100 - 129 mg/dl NEAR OR ABOVE OPTIMAL 130 - 159 mg/dl BORDERLINE HIGH 160 - 189 mg/dl HIGH >190 mg/dl VERY HIGH Performed By: #### T SH, T7, LIPID, CMP #### [facility] [address] [address] [address] Eric Caldwell Triglyceride [Mass/Vol] 77 mg/dL Normal <=150 [facility] Comment on above: Performed By: #### T SH, T7, LIPID, CMP #### [facility] [address] [address] [address] Eric Caldwell VLDL CALC 15.4 mg/dL Normal [facility] Comment on above: Performed By: #### T SH, T7, LIPID, CMP #### [facility] [address] [address] [address] Eric Caldwell PROF 14(COMP METB)on 022 Albumin [Mass/Vol] 3.4 g/dL Normal 3.4-5.0 [facility] Comment on above: Performed By: #### T SH, T7, LIPID, CMP #### [facility] [address] [address] [address] Eric Caldwell Albumin/Globulin [Mass ratio] 0.9 {ratio} Normal [facility] Comment on above: Performed By: #### T SH, T7, LIPID, CMP #### [facility] [address] [address] [address] Eric Caldwell ALP [Catalytic activity/Vol] 52 U/L Normal 46-116 [facility] Comment on above: Performed By: #### T SH, T7, LIPID, CMP #### [facility] [address] [address] [address] Eric Caldwell ALT [Catalytic activity/Vol] 26 U/L Normal 14-59 [facility] Comment on above: Performed By: #### T SH, T7, LIPID, CMP #### [facility] [address] [address] [address] Eric Caldwell Anion gap [Moles/Vol] 11.1 mmol/L Normal [facility] Comment on above: Performed By: #### T SH, T7, LIPID, CMP #### [facility] [address] [address] [address] Eric Caldwell AST [Catalytic activity/Vol] 15 U/L Normal 15-37 [facility] Comment on above: Performed By: #### T SH, T7, LIPID, CMP #### [facility] [address] [address] [address] Eric Caldwell Bilirubin [Mass/Vol] 0.5 mg/dL Normal 0.2-1.0 [facility] Comment on above: Performed By: #### T SH, T7, LIPID, CMP #### [facility] [address] [place] [address] Dr. Eric Caldwell Calcium [Mass/Vol] 8.7 mg/dL Normal 8.5-10.1 [facility] Comment on above: Performed By: #### T SH, T7, LIPID, CMP #### [facility] [address] [place] [address] Dr. Eric Caldwell Chloride [Moles/Vol] 105 mmol/L Normal 98-107 [facility] Comment on above: Performed By: #### T SH, T7, LIPID, CMP #### [facility] [address] [place] [address] Dr. Eric Caldwell CO2 [Moles/Vol] 23.9 mmol/L Normal 21.0-32.0 [facility] Comment on above: Performed By: #### T SH, T7, LIPID, CMP #### [facility] [address] [place] [address] Dr. Eric Caldwell Creatinine [Mass/Vol] 0.62 mg/dL Normal 0.55-1.02 [facility] Comment on above: Performed By: #### T SH, T7, LIPID, CMP #### [facility] [address] [place] [address] Dr. Eric Caldwell EGFR-AF KAZAKH >60 Normal >=60 [facility] Comment on above: Performed By: #### T SH, T7, LIPID, CMP #### [facility] [address] [place] [address] Dr. Eric Caldwell EGFR-NON AF KAZAKH >60 Normal >=60 [facility] Comment on above: Performed By: #### T SH, T7, LIPID, CMP #### [facility] [address] [place] [address] Dr. Eric Caldwell Globulin (S) [Mass/Vol] 3.6 g/dL Normal [facility] Comment on above: Performed By: #### T SH, T7, LIPID, CMP #### [facility] [address] [place] [address] Dr. Eric Caldwell Glucose [Mass/Vol] 97 mg/dL Normal 74-106 [facility] Comment on above: Performed By: #### T SH, T7, LIPID, CMP #### [facility] [address] [address] [address] Eric Caldwell Potassium [Moles/Vol] 4.0 mmol/L Normal 3.5-5.1 [facility] Comment on above: Performed By: #### T SH, T7, LIPID, CMP #### [facility] [address] [address] [address] Eric Caldwell Protein [Mass/Vol] 7.0 g/dL Normal 6.4-8.2 [facility] Comment on above: Performed By: #### T SH, T7, LIPID, CMP #### [facility] [address] [address] [address] Eric Caldwell Sodium [Moles/Vol] 136 mmol/L Normal 136-145 [facility] Comment on above: Performed By: #### T SH, T7, LIPID, CMP #### [facility] [address] [address] [address] Eric Caldwell Urea nitrogen [Mass/Vol] 11.0 mg/dL Normal 7.0-18.0 [facility] Comment on above: Performed By: #### T SH, T7, LIPID, CMP #### [facility] [address] [address] [address] Eric Caldwell Urea nitrogen/Creatinine [Mass ratio] 17.7 mg/mg Normal [facility] Comment on above: Performed By: #### T SH, T7, LIPID, CMP #### [facility] [address] [address] [address] Eric Caldwell TSHon 06-28-2022 TSH 3.734 uIU/mL Normal 0.358-3.740 [facility] Comment on above: Performed By: #### T SH, T7, LIPID, CMP #### [facility] [address] [address] [address] Eric Caldwell Covid-19 PCR (CVDTBH)on SARS-CoV-2 (COVID-19) RNA SERA+probe Ql (Unsp spec) Detected Critically abnormal NOT DETECTED [facility] Comment on above: Result Comment: This test is not yet approved or cleared by the [place] FDA. When there are no FDA-approved or cleared tests available, and other criteria are met, FDA can make tests available under an emergency access mechanism called an Emergency Use Authorization (EUA). The EUA for this test is supported by the [place] of Health and Human Service's (HHS's) declaration [...] longer be used). Performed By: #### C [facility] #### [facility] [address] [place] [address] Dr. Eric Caldwell Covid-19 PCR ([facility])on 07-08 SARS-CoV-2 (COVID-19) RNA SERA+probe Ql (Unsp spec) Not detected Normal NOT DETECTED [facility] Comment on above: Result Comment: This test is not yet approved or cleared by the [place] FDA. When there are no FDA-approved or cleared tests available, and other criteria are met, FDA can make tests available under an emergency access mechanism called an Emergency Use Authorization (EUA). The EUA for this test is supported by the [place] of Health and Human Service's (HHS's) declaration [...] SARS-CoV-2. Performed By: #### C VDTB #### [facility] [address] [address] [address] Eric Caldwell Encounters Encounter Date Encounter Type Care Provider Facility Start: 05-08-2024 End: 05-08-2024 ambulatory Noel Thakkar [facility] Facility:[facility] Start: 05-08-2024 End: 05-08-2024 Departed Referred DO Noel Almaguer [facility] Work Phone: [facility] [address] Work Phone: Start: 11-15-2023 ambulatory Facility:[facility] [place] Start: 07-02-2022 Encounter for genera l adult medical examination without abnormal findings DR WALESKA ENRIQUEZ [facility] Start: 06-28-2022 End: 06-29-[address] WALESKA ENRIQUEZ Facility:[facility] Start: 06-28-2022 End: 06-29-2022 Encounter for general adult medical examination without abnormal findings DR WALESKA ENRIQUEZ Facility:[facility] Start: 09-13-2021 End: 09-13-[address] WALESKA ENRIQUEZ Facility:[facility] Start: 07-27-2021 End: 07-27-[address] WALESKA ENRIQUEZ Facility:[facility] Payers Date Payer Category Payer Self-pay 1985 Unknown [id number] 1986 Unknown [id number] 1986 Unknown [id number] 1958 Private Health Insurance [id number] 1958 Unknown [id number] Unknown Enoch BELTRAN/KATJA [id number] Social History Date Type Detail Facility [facility] Work Phone: Start: 1985 Sex Assigned At Female F [facility] Evaluation note Note Date & Type Note Facility Evaluation note No assessment information availa ble [facility] Work Phone: Summary Purpose Family History No Family History Records FoundNo Family History Records FoundNo Family History Records Found Advance Directives No Advanced Directives Records FoundNo Advanced Directives Records FoundNo Advanced Directives Records Found Additional Source Comments INFORMATION SOURCE (unrecogn ized section and content) DATE CREATED AUTHOR 07/02/2022 [facility] DATE CREATED AUTHOR AUTHOR'S ORGANIZ ATION 11/16/2023 [facility] DATE CREATED AUTHOR AUTHOR'S ORGANIZ ATION 05/10/2024 [facility] Care Teams (unrecognized sec tion [...] BE BASED ON THE PRIMARY CLINICAL RECORDS. [employer] provides no warranty or guarantee of the accuracy or completeness of information in this document.
== END 2024-08-05 20:34 | disposition home or self-care (01) ==
LOC: SLEEP 20:34
PROVIDERS: PCP Nurse Practitioner Family; Visit Provider Nurse Practitioner Family
DX: G47.33 Obstructive sleep apnea (adult) (pediatric) (principal)
CPT/HCPCS: 95811

== ENCOUNTER 2024-08-07 07:59 | Outpatient (RCR) | payer OTHER, SELFPAY | END 2024-08-23 10:03 | disposition home or self-care (01) | LOC: PT 07:59 | PROVIDERS: PCP Nurse Practitioner Family; Visit Provider Family Medicine | DX: M54.50 Low back pain, unspecified (principal); M25.551 Pain in right hip | CPT/HCPCS: 97014; 97035; 97110 ==